=== PATIENT | male | born 1980 | race Caucasian/White ===

== ENCOUNTER 2016-11-17 13:56 | Outpatient (CLI) | payer MEDICARE, OTHER, SELFPAY ==
[2016-11-17 14:44] LABS: Hemoglobin A1c 6.4 % (4.0-6.0)
[2016-11-17 14:54] LABS: #Basophils 0.1 thou/uL (0.0-0.2); #Eosinphils 0.4 thou/uL (0.0-0.7); #Lymphocytes 3.2 thou/uL (1.20-3.40); #Monocytes 0.8 thou/uL (0.11-0.59); %Basophils 1.3 % (0.0-1.0); %Eosinophils 3.3 % (0.0-10.0); %Lymphocytes 30.8 % (21.0-51.0); %Monocytes 7.4 % (0.0-10.0); %Neutrophils 57.2 % (42.0-75.0); Hemoglobin 16.8 g/dL (14.0-18.0); Mean Corpuscular HGB CONC 35.3 g/dL (32.0-36.0); Mean Corpuscular Hemoglobin 32.8 pg (27.0-31.0); Mean Corpuscular Volume 92.9 fl (80.0-94.0); Platelet Count 208 thou/uL (130-400); RBC Distribution Width 12.1 % (11.5-14.5); Red Blood Cell (RBC) Count 5.13 mill/uL (4.70-6.10); White Blood Cell (WBC) Count 10.5 thou/uL (4.8-10.8)
[2016-11-17 15:02] LABS: ALT (SGPT) 67 U/L (8-55); AST (SGOT) 26 U/L (5-34); Albumin 4.6 g/dL (3.5-5.0); Alkaline Phosphatase 64 U/L (40-150); Anion Gap 16 mmol/L (10-20); BUN (Urea Nitrogen) 12 mg/dL (8.9-20.6); Bilirubin, Total 0.9 mg/dL (0.2-1.2); Calc. Creatinine Clearance 0 mL/min (70-130); Calcium 9.5 mg/dL (7.8-10.44); Carbon Dioxide 24 mmol/L (22-29); Cardiac Risk 7.1 (Less than 4.5); Chloride 102 mmol/L (98-107); Cholesterol 242 mg/dL (< 200 Desired); Estimated GFR-MDRD Greater than 90; Globulin 3.2 g/dL (2.4-3.5); Glucose 163 mg/dL (70-105); HDL Cholesterol 34 mg/dL (>60 Neg Risk); Potassium 4.3 mmol/L (3.5-5.1); Protein, Total 7.8 g/dL (6.0-8.3); Sodium 138 mmol/L (136-145); Triglycerides 565 mg/dL (Less than 150)
[2016-11-18 18:17] LABS: Creatinine, Urine 218.69 mg/dL (63-166); Microalbumin/Creat Ratio 22.9 mg/g (Less than 30)
== END 2016-11-17 13:57 | disposition home or self-care (01) ==
LOC: MADLABBHPM 13:56
PROVIDERS: ATTEND Family Medicine
DX: E11.9 Type 2 diabetes mellitus without complications (principal)
CPT/HCPCS: 36415; 80053; 80061; 82043; 83036; 84443; 85025

== ENCOUNTER 2021-02-26 13:38 | Emergency (ER) | payer OTHER, SELFPAY ==
[2021-02-27 07:56] LABS: SARS-CoV-2 PCR by NAA Not Detected (NotDetected)
== END 2021-02-26 15:54 | disposition home or self-care (01) ==
LOC: MADERS 13:38
DX: J20.9 Acute bronchitis, unspecified (principal); B34.9 Viral infection, unspecified; Z20.822 Contact with and (suspected) exposure to COVID-19; E11.9 Type 2 diabetes mellitus without complications; F17.210 Nicotine dependence, cigarettes, uncomplicated
CPT/HCPCS: 99406; U0003; U0005

== ENCOUNTER 2021-11-25 07:13 | Emergency (ER) | payer SELFPAY | END 2021-11-25 08:28 | disposition home or self-care (01) | LOC: MADERS 07:13 | DX: M79.672 Pain in left foot (principal); M25.572 Pain in left ankle and joints of left foot; E11.9 Type 2 diabetes mellitus without complications; F17.210 Nicotine dependence, cigarettes, uncomplicated | CPT/HCPCS: 29515; 36416 ==

== ENCOUNTER 2022-01-04 11:57 | Emergency (ER) | payer SELFPAY ==
[2022-01-04 12:48] LABS: Bilirubin Negative (Negative); Blood, Urine Negative (Negative); Clarity Clear (Clear); Glucose, Urine (Dipstick) Negative (Negative); Ketone, Urine Negative (Negative); Leukocyte Negative (Negative); Nitrite Negative (Negative); Protein, Urine (Dipstick) Negative (Neg-Trace)
[2022-01-04 14:12] LABS: Band 15 % (5-11); Eosinophils 2 % (0-10); Hemoglobin 15.4 g/dL (14.0-18.0); Lymphocytes 8 % (21-51); MDiff Complete? YES; Mean Corpuscular HGB CONC 34.7 g/dL (32.0-36.0); Mean Corpuscular Hemoglobin 30.8 pg (27.0-31.0); Mean Corpuscular Volume 88.6 fL (78.0-98.0); Mean Platelet Volume 11.3 fL (7.4-10.4); Monocytes 5 % (0-10); Neutrophil 70 % (42-75); Platelet Count 189 thou/uL (130-400); Platelet Morphology Comment Appears Adequate; RBC Morphology Normal; Red Blood Cell (RBC) Count 4.99 mill/uL (4.70-6.10); White Blood Cell (WBC) Count 23.6 thou/uL (4.8-10.8)
[2022-01-04 14:14] LABS: ALT (SGPT) 19 U/L (8-55); AST (SGOT) 15 U/L (5-34); Albumin 4.3 g/dL (3.5-5.0); Alkaline Phosphatase 69 U/L (40-110); Anion Gap 14 mmol/L (10-20); BUN (Urea Nitrogen) 7 mg/dL (8.9-20.6); Bilirubin, Total 0.8 mg/dL (0.2-1.2); Calc. Creatinine Clearance 0 mL/min (70-130); Calcium 9.3 mg/dL (7.8-10.44); Carbon Dioxide 27 mmol/L (22-29); Chloride 103 mmol/L (98-107); Globulin 3.2 g/dL (2.4-3.5); Glucose 154 mg/dL (70-105); Potassium 4.3 mmol/L (3.5-5.1); Protein, Total 7.5 g/dL (6.0-8.3); Sodium 140 mmol/L (136-145)
== END 2022-01-04 15:12 | disposition home or self-care (01) ==
LOC: MADERS 11:57
DX: S76.911A Strain of unspecified muscles, fascia and tendons at thigh level, right thigh, initial encounter (principal); D72.829 Elevated white blood cell count, unspecified; Z20.822 Contact with and (suspected) exposure to COVID-19; E11.9 Type 2 diabetes mellitus without complications; F17.210 Nicotine dependence, cigarettes, uncomplicated; X58.XXXA Exposure to other specified factors, initial encounter
CPT/HCPCS: 36415; 71046; 74176; 80053; 81003; 85025; 85379; 85652; 86140; U0003; U0005

== ENCOUNTER 2022-02-21 12:00 | Emergency (ER) | payer SELFPAY ==
[~2022-02-21 12:00] MED LIST: Iopamidol 370 76% 100 ML VIAL ONE
[2022-02-21 13:20] LABS: Bilirubin Negative (Negative); Blood, Urine Negative (Negative); Clarity Clear (Clear); Glucose, Urine (Dipstick) 100 mg/dL (Negative); Ketone, Urine Negative (Negative); Leukocyte Negative (Negative); Nitrite Negative (Negative); Protein, Urine (Dipstick) Negative (Neg-Trace); Urobilinogen 0.2 mg/dL (Less than 2); pH, Urine 5.5 (5.0-9.0)
[2022-02-21 13:22] LABS: Specific Gravity, Urine 1.008 (1.002-1.036)
[2022-02-21 13:55] LABS: #Basophils 0.1 thou/uL (0.0-0.2); #Eosinphils 0.3 thou/uL (0.0-0.7); #Lymphocytes 3.7 thou/uL (1.20-3.40); #Monocytes 0.6 thou/uL (0.11-0.59); #Neutrophils 4.7 thou/uL (1.40-6.50); %Basophils 0.9 % (0.0-1.0); %Eosinophils 3.3 % (0.0-10.0); %Lymphocytes 39.3 % (21.0-51.0); %Monocytes 6.5 % (0.0-10.0); Mean Corpuscular HGB CONC 33.3 g/dL (32.0-36.0); Mean Corpuscular Volume 93.1 fL (78.0-98.0); Mean Platelet Volume 11.8 fL (7.4-10.4); Platelet Count 162 thou/uL (130-400); Red Blood Cell (RBC) Count 4.52 mill/uL (4.70-6.10); White Blood Cell (WBC) Count 9.3 thou/uL (4.8-10.8)
[2022-02-21] MEDS ORDERED: Sodium Chloride 0.9% 1,000 ML ONE (13:59)
[2022-02-21 14:15] LABS: ALT (SGPT) 15 U/L (8-55); AST (SGOT) 14 U/L (5-34); Albumin 4.2 g/dL (3.5-5.0); Alkaline Phosphatase 73 U/L (40-110); Anion Gap 11 mmol/L (10-20); BUN (Urea Nitrogen) 9 mg/dL (8.9-20.6); Bilirubin, Total 0.4 mg/dL (0.2-1.2); CK (CPK) 283 U/L (30-200); CRP (Inflammatory) Less than 0.50 mg/dL (= or < 0.5); Calc. Creatinine Clearance 0 mL/min (70-130); Calcium 9.1 mg/dL (7.8-10.44); Carbon Dioxide 26 mmol/L (22-29); Chloride 107 mmol/L (98-107); Estimated GFR 115; Globulin 2.9 g/dL (2.4-3.5); Glucose 155 mg/dL (70-105); Lipase 35 U/L (8-78); Protein, Total 7.1 g/dL (6.0-8.3); Sodium 140 mmol/L (136-145)
[2022-02-21 14:15] LABS: THC/Cannabinoid Screen Not Detected (NotDetected)
[2022-02-21 14:16] LABS: Amphetamine Not Detected (NotDetected); Benzodiazepine Screen Not Detected (NotDetected); Cocaine Metabolite Screen Not Detected (NotDetected); Methadone Not Detected (NotDetected); Methamphetamine Not Detected (NotDetected); Opiate Screen Not Detected (NotDetected); Phencyclidine (PCP) Not Detected (NotDetected); Tricyclic Screen Not Detected (NotDetected)
[2022-02-21 14:17] LABS: Barbiturates Screen Not Detected (NotDetected); Medtox Control Line Valid? VALID (VALID); Oxycodone Screen Not Detected (NotDetected)
== END 2022-02-21 15:22 | disposition home or self-care (01) ==
LOC: MADERS 12:00
DX: K80.80 Other cholelithiasis without obstruction (principal); E11.9 Type 2 diabetes mellitus without complications; F17.210 Nicotine dependence, cigarettes, uncomplicated
CPT/HCPCS: 74177; 80053; 80306; 81003; 82550; 83690; 85025; 86140; 96360; J7050; Q9967

== ENCOUNTER 2022-03-24 13:53 | Emergency (ER) | payer SELFPAY | END 2022-03-24 14:52 | disposition home or self-care (01) | LOC: MADERS 13:53 | DX: M77.52 Other enthesopathy of left foot and ankle (principal); J02.9 Acute pharyngitis, unspecified; E11.9 Type 2 diabetes mellitus without complications; F17.210 Nicotine dependence, cigarettes, uncomplicated | CPT/HCPCS: 87081; 87430; 99283 ==

== ENCOUNTER 2022-05-18 01:57 | Emergency (ER) | payer SELFPAY ==
[~2022-05-18 01:57] MED LIST changes: -Iopamidol 370 76% 100 ML VIAL ONE; +Magnesium 2 GM/50 ML BAG (IN WATER) ONE; +Orphenadrine Citrate 60 MG/2 ML VIAL ONE
[2022-05-18] MEDS ORDERED: Multivit, Adult Inj 10 ML VIAL ONE (02:33)
[2022-05-18] MEDS ORDERED: Thiamine 100 MG TAB PO SCH (03:30)
[2022-05-18] MEDS ORDERED: cefTRIAXone\\ROCEPHIN 1 GM VIAL ONE (04:08)
[2022-05-18] MEDS ORDERED: Azithromycin 500 MG VIAL ONE (04:12)
[2022-05-18] MEDS ORDERED: Sodium Chloride 0.9% 250 ML 250 ML ONE (04:13)
[2022-05-18] MEDS ORDERED: Sodium Chloride 0.9% 100 ML ONE (04:13)
== END 2022-05-18 01:58 | disposition home or self-care (01) ==
LOC: MADERS 01:57
DX: M25.811 Other specified joint disorders, right shoulder (principal); E11.9 Type 2 diabetes mellitus without complications; F17.210 Nicotine dependence, cigarettes, uncomplicated; Z79.84 Long term (current) use of oral hypoglycemic drugs
CPT/HCPCS: 96372; 99283; J0456; J0696; J2360; J3475; J3490; J7050; J7620

== ENCOUNTER 2022-05-19 12:52 | Emergency (ER) | payer SELFPAY ==
[2022-05-19] MEDS ORDERED: Ketorolac Tromethamine 60 MG/2 ML VIAL ONE (14:33)
[2022-05-19] MEDS ORDERED: Dexamethasone 10 MG/ML VIAL ONE (15:28)
== END 2022-05-19 16:00 | disposition home or self-care (01) ==
LOC: MADERS 12:52
DX: S46.911A Strain of unspecified muscle, fascia and tendon at shoulder and upper arm level, right arm, initial encounter (principal); M62.838 Other muscle spasm; E11.9 Type 2 diabetes mellitus without complications; F17.210 Nicotine dependence, cigarettes, uncomplicated; X58.XXXA Exposure to other specified factors, initial encounter; Z79.84 Long term (current) use of oral hypoglycemic drugs
CPT/HCPCS: 72125; 72128; 96372; J1100; J1885

== ENCOUNTER 2023-01-22 19:42 | Emergency (ER) | payer OTHER ==
[2023-01-22] MEDS ORDERED: Acetaminophen 500 MG TAB ONE (20:46)
[2023-01-22] MEDS ORDERED: Ibuprofen 800 MG TAB ONE (20:46)
== END 2023-01-22 21:46 | disposition home or self-care (01) ==
LOC: MADERS 19:42
DX: M25.512 Pain in left shoulder (principal); E11.9 Type 2 diabetes mellitus without complications; F17.290 Nicotine dependence, other tobacco product, uncomplicated; X50.0XXA Overexertion from strenuous movement or load, initial encounter; Y93.F2 Activity, caregiving, lifting; Y92.512 Supermarket, store or market as the place of occurrence of the external cause